=== PATIENT | female | born 1965 | race Caucasian/White ===

== ENCOUNTER → 2019-07-08 | Outpatient (CLI) | payer BC ==
[~2019-07-08] MED LIST: ATEN25 PO; BISHYD2.5; CEPH500 PO; HYDACE5 PO; IBUP800 PO; NAPR500 PO; OXYACE5T PO; PROM25 PO; RXCEPH500 PO
== END | disposition home or self-care (01) ==
LOC: PLD 08:28 → LAB SHORT 08:28
DX: D48.5 Neoplasm of uncertain behavior of skin (principal)
CPT/HCPCS: 88305

== ENCOUNTER 2021-03-25 12:35 | Day surgery (SDC) | payer BC ==
[~2021-03-25] VITALS: Ht 172.7 cm; Wt 82.2 kg
--- NOTE | 2021-03-25 13:56 | NUR ---
Ambulatory in Day Surgery History, Chart, Medications and Allergies reviewed before start of procedure.Patient confirms NPO status and agrees with scheduled surgery. Lungs clear T/O to Auscultation.Patient states colon prep results clear. Patient States Post-Procedure ride home has been arranged WITH
--- NOTE | 2021-03-25 14:01 | NUR ---
03/25/21 1401 AUDRA TORREZ History, Chart, Medications and Allergies reviewed before start of procedure. Patient confirms NPO status and agrees with scheduled surgery. 3-LEAD EKG REVIEWED WITH PHYSICIAN PRIOR TO START OF PROCEDURE. MONITOR INTACT WITH CONTINUOUS PULSE OXIMETRY AND INTERMITTENT BP. PATIENT DETERMINED TO BE ASA APPROPRIATE FOR PROPOFOL SEDATION PRIOR TO START OF PROCEDURE BY . O2 VIA NASAL CANULA.
--- NOTE | 2021-03-25 15:26 | NUR ---
PT TOLERATING PO FLUIDS. AOX4. RIDE INFORMED OF STATUS.
--- NOTE | 2021-03-25 15:39 | NUR ---
Discharge instructions reviewed with patient. Patient verbalizes understanding. Copy given to patient to take home. Patient States Post-Procedure ride home has been arranged. Discharged via wheelchair to private car for ride home.
== END 2021-03-25 15:43 | disposition home or self-care (01) ==
LOC: ORSCMMR 12:35 → ORSCSDS 13:45 → ORD 13:45 → ORSCMMR 13:45
PROVIDERS: Internal Medicine Gastroenterology
PROC: 0DBK8ZX Excision of Ascending Colon, Via Natural or Artificial Opening Endoscopic, Diagnostic (ICD-10-PCS; principal; 2021-03-25 13:45)
PROC: 0DBN8ZX Excision of Sigmoid Colon, Via Natural or Artificial Opening Endoscopic, Diagnostic (ICD-10-PCS; principal; 2021-03-25 13:45)
PROC: 0DBH8ZX Excision of Cecum, Via Natural or Artificial Opening Endoscopic, Diagnostic (ICD-10-PCS; principal; 2021-03-25 13:45)
DX: Z12.11 Encounter for screening for malignant neoplasm of colon (principal); Z86.010 Personal history of colon polyps; D12.0 Benign neoplasm of cecum; D12.2 Benign neoplasm of ascending colon; K63.5 Polyp of colon; F17.210 Nicotine dependence, cigarettes, uncomplicated
CPT/HCPCS: 88305; J2704; J7120

== ENCOUNTER 2022-08-23 11:50 | Day surgery (SDC) | payer BC ==
[~2022-08-23] VITALS: Ht 170.2 cm; Wt 84.8 kg
--- NOTE | 2022-08-23 12:11 | NUR ---
08/23/22 1211 Betty Muller 1207 1 DROP OF TETRACAINE ADMINISTERED TO THE R EYE, PLEDGET PLACED IN R EYE AT 1208. PT TOLERATED WELL
[2022-08-23 13:23] VITALS: BP 121/81
== END 2022-08-23 13:43 | disposition home or self-care (01) ==
LOC: ORSCSDS 11:50
PROVIDERS: Ophthalmology
PROC: 08RJ3JZ Replacement of Right Lens with Synthetic Substitute, Percutaneous Approach (ICD-10-PCS; principal; 2022-08-23 13:00)
DX: H25.11 Age-related nuclear cataract, right eye (principal); I10 Essential (primary) hypertension; Z86.16 Personal history of COVID-19; Z79.899 Other long term (current) drug therapy; F17.210 Nicotine dependence, cigarettes, uncomplicated
CPT/HCPCS: J2001; J2250; J3010; J3301; J7040; V2632